=== PATIENT | female | born 1955 | race Caucasian/White ===

== ENCOUNTER 2017-11-16 09:05 | Outpatient (CLI) | payer MEDICAID | END 2017-11-16 23:59 | disposition home or self-care (01) | LOC: RAD 09:05 | DX: G25.0 Essential tremor (principal) | CPT/HCPCS: 95819 ==

== ENCOUNTER 2019-03-06 09:38 | Day surgery (SDC) | payer MEDICAID ==
[~2019-03-06] VITALS: Ht 154.9 cm; Wt 74.1 kg
[2019-03-06 09:45] VITALS: BP 148/97
[2019-03-06] MEDS ORDERED: fentaNYL/PF 50MCG/1 ML 2ML syringe ONE (09:53)
[2019-03-06] MEDS ORDERED: MIDAZolam 5mg/5ml vial ONE (09:53)
[2019-03-06] MEDS ORDERED: LIDOcaine Viscous 15ml cup ONE (09:54)
[2019-03-06] MEDS ORDERED: ASPI81TA52 PO (09:57)
[2019-03-06] MEDS ORDERED: ATOR20TA PO (09:57)
[2019-03-06] MEDS ORDERED: ONDA4TAB6 PO (09:57)
[2019-03-06] MEDS ORDERED: CITA40TA11 PO (10:02)
[2019-03-06] MEDS ORDERED: DILT360C30 PO (10:02)
[2019-03-06] MEDS ORDERED: FENO145T38 PO (10:03)
[2019-03-06] MEDS ORDERED: INSU100V9 SQ (10:04)
[2019-03-06] MEDS ORDERED: ESZO3TAB66 PO (10:05)
[2019-03-06] MEDS ORDERED: METF500T PO (10:05)
[2019-03-06] MEDS ORDERED: OMEG1CAP21 PO (10:06)
[2019-03-06] MEDS ORDERED: LIRA0.6P SQ (10:06)
[2019-03-06] MEDS ORDERED: LACT1CAP65 PO (10:07)
[2019-03-06 10:30] VITALS: BP 137/84
[2019-03-06 10:39] VITALS: BP 164/93
[2019-03-06 10:49] VITALS: BP 135/93
[2019-03-06 10:59] VITALS: BP 144/74
== END 2019-03-06 11:15 | disposition home or self-care (01) ==
LOC: GI LAB 09:38
PROVIDERS: ATTEND Internal Medicine Gastroenterology
DX: K20.9 Esophagitis, unspecified (principal); K29.50 Unspecified chronic gastritis without bleeding; R10.13 Epigastric pain; R10.9 Unspecified abdominal pain
CPT/HCPCS: 43239; J2250; J3010; J7030; 99152; A4620